=== PATIENT | female | born 1985 | race Caucasian/White ===

== ENCOUNTER 2016-08-18 07:05 | Inpatient (IN) | payer BC, OTHER ==
[~2016-08-18] VITALS: Ht 157.5 cm; Wt 69.0 kg
--- NOTE | 2016-09-10 13:33 | NUR ---
09/10/16 Kayla3 Elinor Chaves 1314 PATIENT ARRIVES TO ROOM 105, AWAKE, ALERT AND ORIENTED X3. RESP EVEN AND UNLABORED. DENIES PAIN OR NAUSEA.
--- NOTE | 2016-09-23 14:20 | OR ---
[facility] [address], [place] [address] Signed DATE OF PROCEDURE: 09/10/16 PROCEDURE: Elective Primary Low Transverse Section PREOPERATIVE DIAGNOSES Term intrauterine . History of shoulder dystocia with obstetric laceration. History of conization. POSTOPERATIVE DIAGNOSES Term intrauterine . History of shoulder dystocia with obstetric laceration. History of conization. SURGEON: Dmitry Pearce DO SUBSTATION OPERATOR AUTOMATIC: Laney Mccormack MD ANESTHESIA: Spinal. ESTIMATED BLOOD LOSS: 700 mL. COMPLICATIONS: None. FINDINGS Delivery of viable male with Apgars of 8 and 9 at 1 and 5 minutes respectively, weighing 7 pounds, 8 ounces. Normal uterus, tubes, and ovaries bilaterally. Hemostasis at the end of the procedure. COMPLICATIONS: None. INDICATIONS Ms. Girard is a pleasant 30-year-old G2, P1, with intrauterine at 39 weeks and 1 day gestation, who presented for elective primary delivery. is complicated by history of shoulder dystocia and obstetric laceration with her prior delivery and the patient requested primary . is also complicated by history of conization. Risks, benefits, and alternatives were discussed in detail with the patient. The patient understands and wishes to proceed with the procedure. TECHNIQUE Electronically Signed By: DMITRY PEARCE DO 09/23/16 1302 PATIENT NAME: LEXI GIRARD OPERATIVE REPORT DATE OF : 83 PHYSICIAN: DMITRY PEARCE DO REPORT #: [id number] REPORT IS CONFIDENTIAL AND NOT TO BE RELEASED WITHOUT AUTHORIZATION [facility] [address], [place] [address] Signed The patient was taken to the operating room. A time-out was performed to confirm correct patient and correct procedure. Spinal anesthesia was adequately established, and the patient was prepped and draped in the supine position with a bump under right hip. ICPs running and the patient received Ancef 2 g per SCIP protocol. Preop heparin was not indicated. After ensuring the spinal anesthetic was adequate, a Pfannenstiel skin incision was made using a surgical scalpel and carried down to and through the fascia in the midline. Fascial incision was extended bilaterally using curved Lafleur scissors and the fascia was grasped with Byron's elevated and dissected from the underlying rectus muscles using sharp and blunt dissection. The rectus muscles were divided in the midline using blunt dissection and the peritoneum was entered bluntly. Peritoneal incision was extended cephalad and caudad using sharp and blunt dissection. The lower uterine segment was identified and an Stefan self-retractor was placed. Hysterotomy was then performed using surgical scalpel. The hysterotomy was extended bilaterally using blunt dissection and the amniotic sac was ruptured using hemostats. Clear fluid was noted. The surgeon's hand was placed into the abdomen and the head elevated into the maternal abdomen and delivered with the assistance of fundal pressure. Nuchal cord x 2 was noted and reduced prior to delivery of the shoulders. The remainder of the delivered without complication. Upon delivery, the tosha-nasopharynx were bulb suctioned. The was vigorous and cried. The cord was doubly clamped and cut and the handed to the awaiting pediatric team for further care. Cord blood was obtained for routine analysis and the placenta was expressed intact with a centrally inserted 3-vessel cord. The uterus was then cleared of remaining products of conception and clot, and repaired using 0 Vicryl in a running, locked suture. A second vertical imbricating stitch of 0 Vicryl was applied with good hemostasis. A small amount of oozing was noted in the midline and this was made hemostatic with 2 [id number] 0 Vicryls. The tubes and ovaries were identified bilaterally and normal. The pelvis was irrigated and the hysterotomy was again evaluated and found to be hemostatic. The Stefan retractor was removed and an ACell sheet was applied to the lower uterine segment. The peritoneum was then reapproximated using 2-0 Vicryl in a running, nonlocked fashion. The rectus muscles were reapproximated using 0 Vicryl interrupted sutures and the rectus was evaluated and found to be hemostatic. ACell powder was applied to the rectus muscles and fascia was reapproximated using 0 Vicryl in a running, nonlocked manner. SubQ was reapproximated using 3-0 Vicryl in a running, nonlocked manner after ensuring hemostasis. Skin was reapproximated using surgical shabbir. The uterus was then Crede'd for scant blood and the patient was taken to the PACU in good and stable condition. Sponge, needle, and instrument count was correct x2 at the end of procedure. Dr. Mccormack was present and participated in all portions of the procedure. Electronically Signed By: DMITRY PEARCE DO 09/23/16 1302 PATIENT NAME: LEXI GIRARD OPERATIVE REPORT DATE OF : 83 PHYSICIAN: DMITRY PEARCE DO REPORT #: [id number] REPORT IS CONFIDENTIAL AND NOT TO BE RELEASED WITHOUT AUTHORIZATION [address], [place] [address] Signed Dmitry Pearce DO JDW/Modl /[id number] cc: LANEY MCCORMACK MD Electronically Signed By: DMITRY PEARCE DO 09/23/16 1302 PATIENT NAME: LEXI GIRARD SHANE OPERATIVE REPORT DATE OF : 83 PHYSICIAN: DMITRY PEARCE DO REPORT #: [id number] REPORT IS CONFIDENTIAL AND NOT TO BE RELEASED WITHOUT AUTHORIZATION
== END 2016-09-12 14:00 | disposition home or self-care (01) | DRG 765 ==
LOC: FBC 09-10 07:37
PROVIDERS: ADMIT Obstetrics & Gynecology
PROC: 10D00Z1 Extraction of Products of Conception, Low, Open Approach (ICD-10-PCS; principal; 2016-09-10 13:00)
DX: O34.43 Maternal care for other abnormalities of cervix, third trimester (principal); D62 Acute posthemorrhagic anemia; O99.354 Diseases of the nervous system complicating childbirth; O99.824 Streptococcus B carrier state complicating childbirth; O69.81X0 Labor and delivery complicated by cord around neck, without compression, not applicable or unspecified; O90.81 Anemia of the puerperium; G43.909 Migraine, unspecified, not intractable, without status migrainosus; Z88.5 Allergy status to narcotic agent; Z79.899 Other long term (current) drug therapy; Z3A.39 39 weeks gestation of pregnancy; Z37.0 Single live birth
CPT/HCPCS: 01961; 36415; 85027; C1763; J0690; J1100; J1644; J1885; J2274; J2300; J2370; J2405; J2550; J2590; J3010